=== PATIENT | female | born 1965 | race Two or more races ===

== ENCOUNTER 2023-07-29 18:07 | Outpatient (CLI) | payer OTHER | END 2023-07-29 18:08 | disposition home or self-care (01) | LOC: RAD 18:07 | PROVIDERS: ATTEND Emergency Medicine | DX: S69.91XA Unspecified injury of right wrist, hand and finger(s), initial encounter (principal); S60.452A Superficial foreign body of right middle finger, initial encounter ==

== ENCOUNTER 2023-07-30 13:45 | Emergency (ER) | payer OTHER ==
[2023-07-30 15:59] LABS: #Eosinphils 0.2 thou/uL (0.0-0.7); #Monocytes 0.6 thou/uL (0.11-0.59); #Neutrophils 5.1 thou/uL (1.40-6.50); %Basophils 0.4 % (0.0-1.0); %Eosinophils 2.4 % (0.0-10.0); %Lymphocytes 27.1 % (21.0-51.0); %Monocytes 7.1 % (0.0-10.0); %Neutrophils 62.8 % (42.0-75.0); Hematocrit 42.7 % (36.0-47.0); Hemoglobin 14.1 g/dL (12.0-16.0); Mean Corpuscular Hemoglobin 28.4 pg (27.0-31.0); Mean Corpuscular Volume 86.1 fl (78.0-98.0); Mean Platelet Volume 9.3 fL (7.4-10.4); Platelet Count 346 10x3/uL (130-400); RBC Distribution Width 13.5 % (11.5-14.5); Red Blood Cell (RBC) Count 4.96 mill/uL (4.20-5.40); White Blood Cell (WBC) Count 8.1 10x3/uL (4.8-10.8)
[2023-07-30] MEDS ORDERED: Sodium Chloride 0.9% 100 ML ONE (16:08)
[2023-07-30] MEDS ORDERED: Vancomycin 1 GM/200 ML (FROZEN) BAG ONE (16:08)
[2023-07-30] MEDS ORDERED: Cefepime 2 GM VIAL ONE (16:08)
[2023-07-30 17:01] LABS: ALT (SGPT) 32 U/L (8-55); AST (SGOT) 28 U/L (5-34); Albumin 4.5 g/dL (3.5-5.0); Alkaline Phosphatase 91 U/L (40-110); Anion Gap 15 mmol/L (10-20); BUN (Urea Nitrogen) 15 mg/dL (9.8-20.1); Bilirubin, Total 0.4 mg/dL (0.2-1.2); Calc. Creatinine Clearance 0 mL/min (70-130); Calcium 9.6 mg/dL (7.8-10.44); Carbon Dioxide 24 mmol/L (22-29); Chloride 103 mmol/L (98-107); Estimated GFR 83; Glucose 91 mg/dL (70-105); Potassium 3.8 mmol/L (3.5-5.1); Protein, Total 7.5 g/dL (6.0-8.3); Sodium 138 mmol/L (136-145)
== END 2023-07-30 21:53 | disposition short-term general hospital (02) ==
LOC: ERS 13:45
DX: M86.8X4 Other osteomyelitis, hand (principal)
CPT/HCPCS: 36415; 80053; 83605; 85025; 86140; 87040; 87070; 87205; 96361; 96365; 96374; J0692; J3370-JW; J3490